=== PATIENT | female | born 1965 | race Hispanic/Latino ===

== ENCOUNTER 2016-03-14 09:56 | Emergency (ER) | payer OTHER ==
[~2016-03-14] VITALS: Ht 157.5 cm; Wt 75.0 kg
[~2016-03-14 09:56] MED LIST: AZIT250T4 PO; BLAC160C PO; CHOL200047 PO; ERYT1OIN7 OD; FLUT9.9S NS; GUAI120L57 PO; IBUP800T28 PO; IMI25 PO; MAGN400O4 PO; OMEG1CAP56 PO; OMEP20CA11 PO; ONDA4TAB9 PO; TRAM50TA2 PO
[2016-03-14 10:01] VITALS: BP 120/86; PULSE 119; RESP 13; O2SAT 94
--- NOTE | 2016-03-14 10:12 | ED.REPORT ---
HPI-General Illness Date of Service Mar 14, 2016 ED Provider: Doc,Ed MD The patient is a 50 year old female who presents to the emergency department complaining of a "bad reaction" to a pneumonia shot that received yesterday. She has noticed "soreness" to the entire left side of her body. Yesterday afternoon she developed a headache and last night she noticed a fever and vomited a few times. She vomited a few times this morning as well. She has taken Ibuprofen with some relief. She has not had similar symptoms in the past. She denies focal weakness or numbness. She had a pneumonia vaccination 2 years ago and did not have a similar reaction. Nursing Notes Stated Complaint: REACTION TO SHOT Chief Complaint: General Complaint Nursing Notes Reviewed: Yes Allergies: Coded Allergies: nortriptyline (Verified Allergy, Unknown, nausea and dry mouth, 11/26/14) Scheduled Azithromycin (Zithromax (Z-Victorino)) 250 Mg Tablet 250 MG PO DIRECTED daily Black Cohosh Root Extract (Black Cohosh) 160 Mg Capsule Unknown Dose PO DAILY Cholecalciferol (Vitamin D3) (Vitamin D3) 2,000 Unit Capsule 2,000 UNIT PO DAILY Erythromycin Ophth Oint (Erythromycin Ophth Oint) 3.5 Gm Oint...g. 1 APPL OD QID Fluticasone Propionate (Flonase Allergy Relief) 50 Mcg/Actuation [place].susp 1 PUFF NS BID Guaifenesin/Codeine Phosphate (Codeine-Guaifen 10-100 mg/5 ml) 120 Ml Liquid 5 ML PO QID [place]-3 Fatty Acids/Fish Oil ([place] 3 1,000 mg Softgel) 1 Each Capsule 1 EACH PO DAILY Scheduled PRN Hydrocodone-Acetaminophen 5-325 mg (Hydrocodone-Acetaminophen 5-325 mg) 1 Each Tablet 1 TABLET PO Q4H PRN PRN For Pain Ibuprofen (Ibuprofen) 800 Mg Tablet 800 MG PO TID PRN PRN For Pain Lorazepam (Ativan) 1 Mg Tablet 0.5 MG PO TID PRN PRN For Anxiety Magnesium Hydroxide (Milk of Magnesia) 400 Mg/5 Ml Oral.susp 30 ML PO DIRECTED PRN PRN For Constipation Start with 30 mL twice daily, decrease to 15 mL once or twice daily in order to maintain a bowel movement every 1-2 days Omeprazole (Omeprazole) 20 Mg Capsule.dr 20 MG PO DAILY PRN PRN For Dyspepsia or Heartburn Ondansetron ODT (Zofran ODT) 4 Mg Tablet 4 MG PO Q4H PRN PRN For Nausea Sumatriptan (Imitrex) 25 Mg Tablet 25 MG PO DAILY PRN PRN migraine Tramadol (Tramadol) 50 Mg Tablet 50 MG PO Q4H PRN PRN For Pain General Time Seen by MD: 10:11 Chief Complaint Other (reaction to injection) Hx Obtained From: Patient Arrived By: Walk-in Sudden in Onset?: Yes Onset Occurred: Yesterday Symptom Duration: Since onset Location: : Arm left: Head Quality: Painful (sore) Severity: Current: Moderate Severity: Maximum: Moderate Recent Healthcare: No recent hospitalization, Recent doctor visit Similar Sx Previous: No Past Medical History Past Medical History Patient grew up in [place] until she was 1 years old. Vaccination status unknown. History of frequent pneumonia Reports: GERD Past Surgical History None reported Family History Noncontributory Smoking History Never Smoker Social History Other Social History: Good social support, , Local resident Ambulatory Status Independent Review of Systems The entire left side of her body feels sore Full Review of Systems Constitutional: Reports: Fever GI: Reports: Nausea, Vomiting Musculoskeletal: Reports: Extremity pain Neurologic: Reports: Headache, Denies: Focal weakness, Numbness Complete sys rev & neg: except as marked. Physical Exam Vital Signs Vital Signs Date Time Temp Pulse Resp B/P Pulse Ox O2 Delivery O2 Flow Rate FiO2 03/14/16 11:27 92 14 102/50 94 Room Air 03/14/16 11:08 36.9 03/14/16 10:01 37.7 119 13 120/86 94 Room Air Initial VS: Reviewed Head / Eyes: Atraumatic, Normocephalic, PERRL ENT: Mucous membranes moist, Conjunctiva normal, No scleral icterus Neck: Supple, Non-tender, Full range of motion Respiratory: Breath sounds normal, Clear to auscultation, No respiratory distress Cardiovascular: Regular rate & rhythm, Heart sounds normal, Intact distal pulses Abdomen / GI: Soft, Non-tender, No guarding, No rebound, No distention Extremities: Vascular intact, Neuro intact, No swelling Skin: Warm, Dry, No cyanosis Neurologic: Alert, Oriented, Nonfocal Psychiatric: Mood/affect normal, Behavior normal, Normal thought content General/Constitutional: Awake, Alert Distress / Hydration: Positive: Distress mild Upper Extremities Upper Extremity / MS: Neurologic intact, Vascular intact She has limited range of motion of her left shoulder due to pain however she has good passive range of motion. There is no redness, swelling, induration or fluctuance. She has hyperesthesia of the areas starting at left trapezius throughout most of deltoid and upper arm. Neurovascularly intact. No deformity or sign of infection. No subcutaneous crepitus or subcutaneous gas. Neurologic: Oriented X3, Speech NL, No motor deficits, No sensory deficits, CN II - XII intact, Cerebellar NL, Memory NL Re-Eval/Medical Decision Med Decision/Clinical Course Patient presents with diffuse pain from her head to the base of her toes on the left side following a Pneumovax injection. This is not consistent with Guillain-García syndrome, there is no clinical signs or symptoms whatsoever of an abscess, cellulitis, necrotizing fasciitis or other deep space infection. This seems clinically inconsistent with subarachnoid hemorrhage or other neurologic emergent pathology. She has a diffuse hyperesthesia without motor weakness or other cerebellar signs or anesthesia. She was mildly tachycardic and her temperature was borderline low at believe these are both pain responses and have normalized after medication. The injection site was readdressed at multiple occasions during her encounter and has not developed warmth, redness, induration, fluctuance, crepitus or any other signs of infection. Her primary care doctor's office is called and she will be seen in follow-up tomorrow. Vicodin and low-dose lorazepam are given. Return precautions are given to the patient and her daughter. Source of Hx: Old records, Family Time of Eval: 11:00 Re-Evaluation/Progress Note: Rechecked the patient. She is resting comfortably but still complains of a headache. Time of Eval: 11:29 Re-Evaluation/Progress Note: The patient is still complaining of a headache. Time of Eval: 11:38 Re-Evaluation/Progress Note: Rechecked the patient. Discussed plan for discharge. All questions were addressed. Consultation : Referral / Consult Name: Wilfred Marquez DO Call Returned at: 11:40 Software Tester: Will see in office, Agrees with eval, Agrees with plan Counseled Regarding: Diagnosis, Lab results, Need for follow-up, When/why to return to ED Discharge & Departure Primary Impression: Headache Headache type: unspecified Headache chronicity pattern: unspecified pattern Intractability: not intractable Qualified Code: R51 - Headache Disposition: Home Discharge Condition All VS Reviewed: Yes Condition: Stable Additional Instructions: Thank you for entrusting us with your care today. There is no evidence of an infection. Wear the sling for the next few days to help with your pain. Take the medication as prescribed for your pain. You have an appointment at the residency clinic tomorrow at 10:30 AM. Please arrive early for check-in. Return to the emergency department for any new or concerning symptoms. Referrals: [facility] Res[facility] Scribe Attestation Portions of this note were transcribed by Jennifer Jordan. I, Dr. Moody personally performed the history, physical exam and medical decision-making; I reviewed and confirmed the accuracy of the information in the transcribed note. Signed by: Salvador Arizmendi, 03/14/2016 and 1200. copies to: [facility] Res[facility] Mitchell Moody DO Mar 14, 2016 10:12 Jennifer Jordan Mar 14, 2016 10:13
[2016-03-14] MEDS ORDERED: HYDROcodone-APAP 5-325 mg Tablet PO ONE (10:20)
[2016-03-14] MEDS ORDERED: Ondansetron 8 mg ODT Tablet ONE (10:25)
[2016-03-14] MEDS ORDERED: LORazepam 1 mg Tablet PO ONE (10:45)
[2016-03-14 11:27] VITALS: BP 102/50; PULSE 92; RESP 14; O2SAT 94
[2016-03-14] MEDS ORDERED: HYDR-4003 PO (12:34)
[2016-03-14] MEDS ORDERED: LORA-303 PO (12:34)
[2016-03-14] MEDS ORDERED: ONDA4TAB9 PO (13:09)
[2016-03-14 13:17] VITALS: BP 97/60; PULSE 85; RESP 12; O2SAT 93
[2016-03-14] MEDS ORDERED: MetoCLOpramide 5 mg/mL 2 mL Inj IM ONE (13:20)
--- NOTE | 2016-03-14 13:51 | DRSVH ---
PROCEDURE: CT BRAIN WITHOUT CONTRAST ([id number]) INDICATIONS: 50-year-old woman with headache. TECHNIQUE: Noncontrast 4.5 mm thick angled axial sections acquired from the foramen magnum to the vertex, with c oronal reformats. COMPARISON: [facility], CT, BRAIN W/O CONTRAST, 05/02/2011, 5:35. [facility] , MR, STROKE PROTOCOL (PNL), 05/01/2011, 17:11. [facility], CT, BRAIN W/O CONTRAST, 2012, 11:56. FINDINGS: Image quality: Excellent. CSF spaces: Basal cisterns are patent. No extra-axial fluid collections. Ventricles are normal in size and shape. Brain: No midline shift. No intracranial masses or hemorrhage. [place]-white matter interface is norm al. Skull and face: Calvarium and visualized facial bones are intact, without suspicious lesions. Sinuses: Visualized sinuses and mastoids are clear. IMPRESSION: No acute intracranial abnormalities. Dictated by: Mayco Hubbard M.D. on 03/14/2016 at 13:48 Approved by: Mayco Hubbard M.D. on 03/14/2016 at 13:49
[2016-05-07] MEDS ORDERED: IMI100 PO (17:02)
[2016-05-07] MEDS ORDERED: CETI-343 PO (17:02)
[2016-05-07] MEDS ORDERED: POLY17PO6 PO (17:02)
[2016-05-07] MEDS ORDERED: ASPI-973 PO (17:02)
[2016-05-07] MEDS ORDERED: DOCU250C2 PO (17:02)
== END 2016-03-14 15:37 | disposition home or self-care (01) ==
LOC: SED 09:56
DX: R51 Headache (principal); T50.B95A Adverse effect of other viral vaccines, initial encounter; R50.9 Fever, unspecified; R11.10 Vomiting, unspecified; Y84.8 Other medical procedures as the cause of abnormal reaction of the patient, or of later complication, without mention of misadventure at the time of the procedure; Y93.89 Activity, other specified; Y92.9 Unspecified place or not applicable; Y99.8 Other external cause status; K21.9 Gastro-esophageal reflux disease without esophagitis; Z88.8 Allergy status to other drugs, medicaments and biological substances
CPT/HCPCS: 70450; 96372; 99284; J2765

== ENCOUNTER 2016-05-08 10:30 | Day surgery (SDC) | payer OTHER ==
[~2016-05-08] VITALS: Ht 157.5 cm; Wt 72.5 kg
[~2016-05-08 10:30] MED LIST changes: +0.9% Sodium Chloride 1,000 ML IV PRN; +ASPI-973 PO; -AZIT250T4 PO; -BLAC160C PO; +CETI-343 PO; +DOCU250C2 PO; -ERYT1OIN7 OD; -FLUT9.9S NS; -GUAI120L57 PO; +IMI100 PO; -IMI25 PO; -MAGN400O4 PO; -OMEG1CAP56 PO; -ONDA4TAB9 PO; +POLY17PO6 PO; +Sodium Chloride LOK Flush 10 mL Syringe IV PRN; -TRAM50TA2 PO; +fentaNYL-PF 50 mCg/mL 2 mL Inj IVPUSH PRN
[2016-05-08 11:03] VITALS: BP 116/79; PULSE 69; RESP 16; O2SAT 97
--- NOTE | 2016-05-08 12:38 | PCM.ENDEGD ---
EGD Physician Daniele Jason MD Pre Procedure Diagnosis: Dysphagia Post Procedure Dx & Findings: Esophagitis esophageal erosion Procedure Esophagogastroduodenoscopy PROCEDURE IN DETAIL: After proper sedation, Olympus video endoscope was inserted into patient's mouth and esophagus was successfully intubated. Scope introduced esophagus. Esophagus showed normal shiny whitish mucosa consistent with squamous cell component. Z line was irregular at 36 cm from the incisors. GE junction showed inflammation and healing erosions. Biopsies are obtained using cold forceps. The scope further advanced to the stomach. Stomach showed normal shiny mucosa with normal appearing rugae folds without any ulcer mass erosion. Cardia fundus body antrum pylorus were all visualized. Retroflexion was done. Stomach was easily inflated and deflatable using air. Scope further events to the distal duodenum. Duodenum revealed normal villous structures with normal appearing folds without any mass ulcer erosion. Impression Esophagitis esophageal erosion. Recommendation Avoid NSAIDs Continue Prilosec 20 twice a day for now. Presedation Assessment Risks and Benefits Informed consent was obtained from the patient after all risks and benefits including but not limited to drug reaction, infection, pain, bleeding, perforation, as well as alternatives were discussed. Patient monitoring Continuous pulse oximetry, cardiac monitoring, blood pressure monitoring, IV access, and oxygen at 2L per nasal cannula. Periprocedural Fentanyl: Fentanyl 75mcg Incrementally Midazolam: Midazolam 3mg Incrementally Complications There were no periprocedural complications identified. Post Procedure Plan Post Procedure Recommendations 1. Restrict activities today. 2. Resume normal activities in the morning. 3. Resume medications. 4. GERD behavioral modification: - Avoid fatty, acidic, spicy, large meals - Do not lie down after meals - Do not eat or drink anything for at least 2 1/2 hours before going to bed at night - Discontinue tobacco and alcohol - Decrease or avoid caffeine - Avoid chocolate and mints - Decrease weight - Avoid aspirin and non steroidal anti-inflammatory agents (NSAID) such as Aleve, Advil, Mobic, Naproxen, Ibuprofen, etc 5. Add proton pump inhibitor. Take 30 minutes before 1st meal of the day. 6. Patient informed of normal post procedure side effects as bloating, drowsiness, blood streaking in the stool 7. If gastric biopsy reveal H.pylori, continue with appropriate treatment 8. If small bowel biopsy reveals celiac, continue with appropriate treatment 9. Please don't hesitate to call me with any questions Daniele Jason MD May 08, 2016 12:38
[2016-05-08 12:39] VITALS: BP 106/74; PULSE 63; RESP 16; O2SAT 95
[2016-05-08 12:49] VITALS: BP 99/69; PULSE 70; RESP 16; O2SAT 96
[2016-05-08 13:07] VITALS: BP 114/76; PULSE 62; RESP 16; O2SAT 97
--- NOTE | 2016-05-09 13:38 | PATH ---
SURGICAL PATHOLOGY Attending Physician:Daniele Jason M.D. CASE STATUS: Signed Out PATIENT NAME: SOLO BECERRA PID: [id number] : 1965 DATE COLLECTED:05/08/2016 20:09 SPECIMEN: Esophagus, Biopsy CLINICAL HISTORY: 1). GASTROESOPHAGEAL JUNCTION BIOPSIES FINAL DIAGNOSIS: 1.GASTROESOPHAGEAL JUNCTION BIOPSIES: SQUAMOUS MUCOSA AND GASTRIC CARDIA-TYPE MUCOSA WITH CHRONIC INFLAMMATION AND REACTIVE EPITHELIAL CHANGES. Negative for evidence of specialized metaplasia of Samuels' s esophagus. Negative for dysplasia and malignancy. Rare eosinophil noted within squamous epithelium consistent with chronic reflux. ICD10 code K21.0 GROSS DESCRIPTION: The specimen is received in one formalin filled container labeled with the patient's name, sublabeled "gastro-esophageal junction" and consists of 2 portions of tissue which aggregate to 0.2 x 0.2 x 0.2 CM. The specimen is entirely submitted in one cassette. 05/08/2016 [facility] MICRO DESCRIPTION: See diagnosis. ICD-9 CODES: CPT CODES: 1: 23505 Electronically Signed Out Lan Baez MD [facility] [address], [place] [address] Technical component performed at [facility], [address] [place] [address] Ave[address], [place], [address]
== END 2016-05-08 23:59 | disposition home or self-care (01) ==
LOC: END 10:30
PROVIDERS: ATTEND Internal Medicine
DX: K21.0 Gastro-esophageal reflux disease with esophagitis (principal); R13.10 Dysphagia, unspecified; Z79.82 Long term (current) use of aspirin; Z79.899 Other long term (current) drug therapy
CPT/HCPCS: 43239; 88305; G0500; J2250; J3010; J7030

== ENCOUNTER 2016-11-05 16:22 | Emergency (ER) | payer OTHER ==
[~2016-11-05] VITALS: Ht 157.5 cm; Wt 72.7 kg
[~2016-11-05 16:22] MED LIST changes: -0.9% Sodium Chloride 1,000 ML IV PRN; -CETI-343 PO; -IBUP800T28 PO; -Sodium Chloride LOK Flush 10 mL Syringe IV PRN; -fentaNYL-PF 50 mCg/mL 2 mL Inj IVPUSH PRN
[2016-11-05 16:27] VITALS: BP 113/76; PULSE 93; RESP 22; O2SAT 96
--- NOTE | 2016-11-05 16:46 | ED.REPORT ---
HPI-Dyspnea / Wheezing Date of Service Nov 05, 2016 ED Provider: Dillan Edwards MD History of Present Illness: Sent from clinic with concern for pneumonia Pt is a 51 y/o female with a history of recurrent pneumonia who presents to the ED sent from with concern for pneumonia onset 3 days ago. She states that these symptoms are similar to her previous pneumonia diagnoses. Additional symptoms include throat tightness, dysphagia, headache, chills, and fever. Pt denies any recent travel, encounters with infectious people, or regular use of her inhaler. She has had a pneumonia every year for past 5 years around this time of year. Nursing Notes Stated Complaint: PNEUMONIA Chief Complaint: General Complaint Nursing Notes Reviewed: Yes ([employer] not reconciled) Allergies: Coded Allergies: nortriptyline (Verified Allergy, Unknown, nausea and dry mouth, 05/08/16) simvastatin (Verified Allergy, Unknown, 05/08/16) Scheduled Aspirin (Aspirin) 81 Mg Tablet 81 MG PO DAILY Azithromycin (Zithromax (Z-Victorino)) 250 Mg Tablet 250 MG PO DIRECTED Take two tablets by mouth on day 1, then take one tablet daily on days 2 through 5. Cholecalciferol (Vitamin D3) (Vitamin D3) 2,000 Unit Capsule 4,000 UNIT PO DAILY Polyethylene Glycol 3350 (Miralax) 17 Gm Powd.pack 17 GM PO DAILY Scheduled PRN Docusate Sodium (Docusate Sodium) 250 Mg Capsule 250 MG PO DAILY PRN PRN For Constipation Omeprazole (Omeprazole) 20 Mg Capsule.dr 20 MG PO DAILY PRN PRN For Dyspepsia or Heartburn Sumatriptan (Imitrex) 100 Mg Tablet 100 MG PO DAILY PRN PRN Headache General Time Seen by MD: 16:44 Chief Complaint Other (possible pneumonia) Hx Obtained From: Patient, Spouse, Director Digital Strategy Arrived By: Walk-in Sudden in Onset?: No Onset Occurred: 3 days ago Symptom Duration: Constant Quality: Painful Severity: Current: Mild Severity: Maximum: Moderate Recent Healthcare: Recent doctor visit Similar Sx Previous: Yes Past Medical History Past Medical History Patient grew up in [place] until she was 1 years old. Vaccination status unknown. History of "yearly" pneumonias for the past 5 years, including one admit Reports: GERD Past Surgical History Reports: Appendectomy, Cholecystectomy Family History Noncontributory Smoking History Never Smoker Social History Other Social History: Good social support, , Local resident Ambulatory Status Independent Review of Systems Throat tightness Dysphagia Constitutional: Reports: Chills, Fever Ears / Nose / Throat: Reports: Throat pain Complete sys rev & neg: except as marked. Neurologic: Reports: Headache Physical Exam Initial Vital Signs Vital Signs (First) Date Time Temp Pulse Resp B/P Pulse Ox O2 Delivery O2 Flow Rate FiO2 11/05/16 16:27 37.2 93 22 113/76 96 Room Air Initial VS: Reviewed, Vital signs normal Head / Eyes: Atraumatic, Normocephalic Extremities: Vascular intact, Neuro intact, No swelling, No tenderness Skin: Warm, Dry, No cyanosis Neurologic: Alert, Oriented, Nonfocal Psychiatric: Mood/affect normal, Behavior normal, Normal thought content General/Constitutional: Awake, Alert, Not toxic appearing Appearance / Presentation: Positive: Uncomfortable Appears fatigued Not ill appearing Neck: Supple, Full range of motion Respiratory / Chest: Atraumatic, No respiratory distress Scattered rhonchi O2 at 93% on room air Cardiovascular: Heart rate NL, Regular rhythm, Heart sounds NL Interpretation & Diagnostics Lab Results Interpretation Result Diagram: 11/05/16 1712 11/05/16 1712 Test 11/05/16 17:12 11/05/16 18:50 White Blood Count 8.2th/mm3 (3.8-10.1) Red Blood Count 5.01mil/mm3 (3.90-5.20) Hemoglobin 14.9g/dL (12.0-15.6) Hematocrit 43.6% (35.0-46.0) Mean Corpuscular Volume 87.0fL (81-100) Mean Corpuscular Hemoglobin 29.7pg (27.0-35.0) Mean Corpuscular Hemoglobin Concent 34.2% (32.0-37.0) Red Cell Distribution Width 13.0% (12.3-15.4) Platelet Count 297bil/L (150-400) Neutrophils (%) (Auto) 53.5% (40-74) Lymphocytes (%) (Auto) 36.9% (14-46) Monocytes (%) (Auto) 6.5% (4-12) Eosinophils (%) (Auto) 2.4% (0-5) Basophils (%) (Auto) 0.5% (0-3) Prothrombin Time 10.1sec (8.1-12.5) Prothromb Time International Ratio 0.95ratio Sodium Level 140mEq/L (134-144) Potassium Level 4.2mEq/L (3.5-5.2) Chloride Level 104mEq/L (97-108) Carbon Dioxide Level 19mmol/L (18-29) Blood Urea Nitrogen 21mg/dL (6-24) Creatinine 0.70mg/dL (0.57-1.00) Estimat Glomerular Filtration Rate 125mL/min (>59) Glucose Level 112mg/dL (60-99) Lactic Acid Level 1.2mmol/L (0.4-2.0) Calcium Level 9.4mg/dL (8.5-10.1) Magnesium Level 2.2mg/dL (1.6-2.6) Total Bilirubin 0.2mg/dL (0.0-1.2) Aspartate Amino Transf (AST/SGOT) 28U/L (0-50) Alanine Aminotransferase (ALT/SGPT) 22U/L (0-32) Alkaline Phosphatase 135U/L (25-150) Troponin T < 0.010ug/L (0.0-0.011) Total Protein 7.6g/dL (6.4-8.4) Albumin 3.9g/dL (3.4-5.0) Urine Color Yellow (YELLOW) Urine Appearance Clear (CLEAR,HAZY) Urine pH 6.0 (5.0-8.0) Urine Specific [place] 1.030 (1.003-1.035) Urine Protein Negativemg/dL (NEG,TRACE) Urine Glucose (UA) Negativemg/dL (NEGATIVE) Urine Ketones Negativemg/dL (NEGATIVE) Urine Occult Blood Negative (NEGATIVE) Urine Nitrite Negative (NEGATIVE) Urine Bilirubin Negative (NEGATIVE) Urine Urobilinogen Normalmg/dL (NORMAL) Urine Leukocyte Esterase Negative (NEGATIVE) Urine RBC 0-2/hpf (0-2) Urine WBC 0-5/hpf (0-5) Urine Epithelial Cells Moderate/hpf (NONE-MOD) Urine Crystals None seen (NONE SEEN) Urine Bacteria Few/hpf (NONE-FEW) Urine Hyaline Casts None/lpf (NONE) Urine Granular Casts None seen (NONE SEEN) Urine Waxy Casts None seen (NONE SEEN) Urine Red Blood Cell Casts None seen (NONE SEEN) Urine White Blood Cell Casts None seen (NONE SEEN) Urine Mucus None seen (None Seen) Urine Trichomonas None seen (NONE SEEN) Urine Yeast None (NONE SEEN) Urinalysis Comment None Urine Culture Reflexed Not indicated X-Ray Chest Interpretation Chest Xray Interpretation: IMPRESSION: Patchy bibasilar lung opacities compatible with atelectasis versus pneumonia. Please correlate with clinical and laboratory data. Dictated by: Omayra Coker MD, PhD on 11/05/2016 at 16:30 Approved by: Omayra Coker MD, PhD on 11/05/2016 at 16:31 View: Portable, 1 view Interpretation / Wet Read by: Interpret - Radiologist Re-Eval/Medical Decision Med Decision/Clinical Course This is a 51-year-old female presents referred from the clinic with concern for another pneumonia. She reports she's had pneumonia every year for approximately past 5 years, is even had one previous admission. She developed fever cough chest discomfort, mild headache in the same symptoms he's had with other pneumonias, in which he developed a fever on Saturday was encouraged to come to the ED, but started feel better so did not. Today she feels worse and states this is about the same as a regular pneumonias. She is a nonsmoker, she has no history of immune suppression, she has no history of known lung disease beyond these recurrent pneumonias-her last treatment for pneumonia with October 2015. She reports she usually turns right around with azithromycin. On exam she is in no strenuous paroxysmal cough a few scattered rhonchi-but she does have a room air O2 sat of only 93%. Low for someone without known lung disease or smoking history, but not require supplemental O2 or hospitalization. A chest x-ray again is suggestive of a lower lobe pneumonia. Blood work is normal no leukocytosis lactic acidosis. Patient is overall low risk and does not require hospitalization by current criteria, received a dose of parenteral ceftriaxone in the department is being discharged on azithromycin. Family subdural frustrated that we don't have an explanation for the recurrent nature of pneumonias, given that she does have a record of a multiple episodes- I recommend she talk to her PCP about referral to pulmonology for outpatient follow-up on that issue. Routine return precautions reviewed. Source of Hx: Old records Re-Evaluation/Progress : Time of Eval: 16:44 Re-Evaluation/Progress Note: Discussed plan for discharge and need for F/U with underwriting assistant. Patient understands and agrees with plan. F/U instructions and RTER warnings given. All questions addressed at this time. Differential Diagnosis: Positive: Pneumonia, Negative: Acute coronary syndrome, Airway obstruction, Asthma, Hypertensive emergency, Pneumothorax, Pulmonary embolism, Respiratory failure, Respiratory insufficiency Counseled Regarding: Diagnosis, Lab results, Need for follow-up, When/why to return to ED Discharge & Departure Impression: Primary Impression: Pneumonia Pneumonia type: due to unspecified organism Laterality: unspecified laterality Lung location: unspecified part of lung Qualified Code: J18.9 - Pneumonia, unspecified organism Disposition: Home Discharge Condition All VS Reviewed: Yes Condition: Stable Additional Instructions: 1. Your Xray and symptoms suggests another pneumonia. 2. Your blood tests were normal. We do not know why you have had yearly pneumonias, that is unsual and you should talk to your doctor about a referral to a underwriting assistant. 3. Take the antibiotic azithromycin as directed. 4. Continue your albuterol inhaler. 5. Continue the tessalon perles for cough. 6. Take ibuprofen 400-800mg three times a day as needed for pain or fever. 7. Return if new or worsening symptoms. 1. Angela lilia X y sntomas sugieren otra neumona. 2. Angela exmenes de maria luisa salieron normales. No sabemos por que mota estado teniendo neumonas cada ao, esto no es lo usual y debe hablar con olson doctor para jeri si la refiere a un neumlogo. 3. Brian el antibitico Azithromycin gisel leatha se le indica. 4. Siga usando olson inhalador Albuterol. 5. Siga tomando las perlas Tessalon para la tos. 6. Brian 400-800mg de Ibuprofeno fercho veces al da mientras sea necesario para el dolor o fiebre. 7. Vuelva si aparece algn sntoma nuevo o si algunos de los que ya tiene empeoran. GR/Director Digital Strategy Referrals: Yue Castellanos DO (PCP) Scribe Attestation Portions of this note were transcribed by Elle Pal. I, Dr. Edwards, personally performed the history, physical exam and medical decision-making; I reviewed and confirmed the accuracy of the information in the transcribed note. Signed by: Salvador Mendoza, 11/05/16. copies to: Yue Castellanos Matthew F MD Nov 05, 2016 16:46 Elle Pal Nov 05, 2016 17:31
[2016-11-05 17:17] LABS: BASOPHILS % (AUTO) 0.5 % (0-3); EOSINOPHILS % (AUTO) 2.4 % (0-5); MONOCYTES % (AUTO) 6.5 % (4-12); Mean Corpuscular Hemoglobin 29.7 pg (27.0-35.0); NEUTROPHILS % (AUTO) 53.5 % (40-74); Platelet Count 297 bil/L (150-400)
[2016-11-05] MEDS ORDERED: cefTRIAXone Inj 2,000 MG in Dextrose 5% Minibag Plus 50 ML IV ONE (17:30)
[2016-11-05] MEDS ORDERED: HYDROcodone-APAP 5-325 mg Tablet PO ONE (17:30)
[2016-11-05] MEDS ORDERED: Albuterol 2.5 mg/3 mL Inhalation Solution NEB ONE (17:30)
[2016-11-05 17:32] LABS: INR 0.95 ratio
--- NOTE | 2016-11-05 17:32 | DRSVH ---
PROCEDURE: X-RAY CHEST ONE VIEW, PORTABLE ([id number]) INDICATIONS: SHORT OF BREATH TECHNIQUE: One view of the chest was acquired. COMPARISON: [facility], CR, XR CHEST 1VW (PORTABLE), 01/25/2016, 17:14. FINDINGS: Surgical changes and devices: None. Lungs and pleura: No pleural effusions or pneumothorax. Patchy opacities noted in the lung bases emil aterally which could represent atelectasis or pneumonia. Mediastinum: Mediastinal contours appear normal. Heart size is normal. Bones and chest wall: No suspicious bony lesions. Overlying soft tissues appear unremarkable. IMPRESSION: Patchy bibasilar lung opacities compatible with atelectasis versus pneumonia. Please treasure elate with clinical and laboratory data. Dictated by: Omayra Coker MD, PhD on 11/05/2016 at 16:30 Approved by: Omayra Coker MD, PhD on 11/05/2016 at 16:31
[2016-11-05 17:51] LABS: Magnesium 2.2 mg/dL (1.6-2.6); TROPONIN T < 0.010 ug/L (0.0-0.011)
[2016-11-05] MEDS ORDERED: AZIT250T4 PO (17:51)
[2016-11-05 18:19] VITALS: BP 111/83; PULSE 99; RESP 28; O2SAT 98
[2016-11-05 18:45] VITALS: PULSE 87; RESP 16; O2SAT 98
[2016-11-05 18:58] VITALS: BP 118/76; PULSE 93; RESP 16; O2SAT 94
[2016-11-05 19:03] LABS: APPEARANCE,URINE CLEAR (CLEAR,HAZY); COLOR,URINE YELLOW (YELLOW); OCCULT BLOOD,URINE NEGATIVE (NEGATIVE); UROBILINOGEN,URINE NORMAL (NORMAL)
== END 2016-11-05 19:04 | disposition home or self-care (01) ==
LOC: SED 16:22
DX: J18.9 Pneumonia, unspecified organism (principal); K21.9 Gastro-esophageal reflux disease without esophagitis; Z79.82 Long term (current) use of aspirin; Z88.8 Allergy status to other drugs, medicaments and biological substances
CPT/HCPCS: 36415; 71010; 80053; 81000; 81025; 83605; 83735; 84484; 85025; 85610; 87040; 93005; 94664; 94799; 96365; 99285; J0696; J7613